=== PATIENT | male | born 1980 | race Caucasian/White ===

== ENCOUNTER 2016-08-17 06:37 | Emergency (ER) | payer OTHER ==
[~2016-08-17 06:37] MED LIST: ALBUTEROL17 GM INH; AZITHROMYCIN250 MG PO; PREDNISONE PO
== END 2016-08-17 08:09 | disposition home or self-care (01) ==
LOC: CED 06:37
DX: K08.89 Other specified disorders of teeth and supporting structures (principal); J45.909 Unspecified asthma, uncomplicated; I25.2 Old myocardial infarction; F17.200 Nicotine dependence, unspecified, uncomplicated; Z88.1 Allergy status to other antibiotic agents
CPT/HCPCS: 99282

== ENCOUNTER 2016-08-19 14:14 | Emergency (ER) | payer OTHER ==
--- NOTE | ~2016-08-19 | CT99 ---
[facility] A Service of [facility] RADIOLOGY TEXT RESULTS PATIENT: MICHAELA RICHARD LOCATION: [facility] : 76 UNIT #: [id number] AGE: [address]: Zack Coe DO SEX: M ORDER DR: [id number] [facility]. [place], [place] [address] [id number] MR#: [id number] Acc #: [id number] NAME: MICHAELA RICHARD : 1980 SEX: M STUDY DATE/TIME: 08/19/2016 16:10 UNIT: [facility] ROOM: STUDY DESCRIPTION: CT Maxillofacial Area W Cont Attending Physician: Zack Coe D.O. Ordering Physician: Zack Coe D.O. Primary Care Physician: No Primary Care Physician MEDICAL IMAGING REPORT This report is preliminary unless electronic signature is present EXAMINATION CT face with contrast. DATE 08/19/2016 HISTORY Right tooth pain, jaw swelling, throat tightness for 1 week. Pain greatest in the right lower jaw. COMPARISON None. PROCEDURE 2 mm axial images through the face after IV contrast administration. Coronal reformatted images were obtained. This CT exam was performed with one or more of the following radiation dose reduction techniques: automatic exposure control, adjustment of mA and/or kV according to patient size, and iterative reconstruction. FINDINGS Multiloculated peripherally enhancing fluid collection or abscess is demonstrated in the right mandibular region, greatest medially. It measures 3.3 x 5.1 x 4.2 cm. There is periapical lucency surrounding the right third molar with a root tip, which may extend just through the cortical margin of the mandible, and there is a large dental juan luis involving this molar. Periodontal disease suspected. Abnormally enlarged right jugulodigastric node is favored to represent benign reactive change measuring up to 1.6 cm. Enlarged right submandibular node measures 1.9 x 1.3 cm. Right submental node measures 1.7 x 0.9 cm. Overlying right facial cellulitic change and skin thickening. There is mild mass effect upon the oropharyngeal airway. [facility] A Service of [facility] RADIOLOGY TEXT RESULTS PATIENT: MICHAELA RICHARD LOCATION: [facility] : 76 UNIT #: [id number] AGE: [address]: Zack Coe DO SEX: M ORDER DR: Epiglottis appears within normal limits. Major vascular structures appear patent. IMPRESSION 1. Large abscess surrounds the right mandible, involving the soft tissues both medial and lateral to the mandible, greatest medially, with the abscess measuring 5.0 x 3.3 x 4.2 cm. Creates mild mass effect upon the oropharynx, but the airway does remain patent. 2. Pathologically enlarged right submental, right submandibular and jugulodigastric nodes likely reactive. 3. Suspected periodontal disease change involving the right third mandibular molar with lucency at its apex, the root tip appearing just to protrude into or through the cortex of the mandible inferiorly. Large dental juan luis is also present in this tooth. Dictated by... Kesha Goodman M.D. THIS IS AN ELECTRONICALLY VERIFIED REPORT Kesha Goodman M.D. at 08/21/2016 8:39 AM Smith TD: 08/19/2016 20:56 JOB #: [id number] MEDICAL IMAGING REPORT Page 1 of 1 COPY
[2016-08-19 14:49] LABS: BASOPHIL# 0.1 X10e3 (0-0.3); BASOPHIL% 0.5 % (0-2.5); EOSINOPHIL# 0.1 X10e3 (0-0.7); EOSINOPHIL% 0.9 % (0.0-7.0); HEMATOCRIT 43.1 % (38.0-50.0); HEMOGLOBIN 14.6 gm/dL (13.0-16.0); LYMPHOCYTE# 1.5 X10e3 (1.0-3.5); LYMPHOCYTE% 11.1 % (17.0-45.0); MEAN CELL VOLUME 98.8 FL (83-96); MEAN CORPUSCULAR HEMOGLOBIN 33.5 PG (28-34); MEAN CORPUSCULAR HGB CONC 33.9 g/dL (30-36); MEAN PLATELET VOLUME 8.6 FL (6.5-11.5); MONOCYTE# 1.6 X10e3 (0-1.0); MONOCYTE% 12.2 % (3.0-12.0); NEUTROPHIL# 10.1 X10e3 (1.5-7.1); NEUTROPHIL% 75.3 % (40-75); PLATELET COUNT 273 X10e3 (140-420); RED BLOOD COUNT 4.36 X10e (3.90-5.60); RED CELL DISTRIBUTION WIDTH 12.8 % (11.0-15.5); WHITE BLOOD COUNT 13.4 X10e3 (4.0-10.5)
[2016-08-19 14:52] LABS: DIFF IND NO
[2016-08-19 15:12] LABS: INR 1.1; PROTHROMBIN TIME (PATIENT) 11.1 SECONDS (9.6-11.5)
[2016-08-19 15:16] LABS: BUN/CREATININE RATIO 12.72; CALCIUM SERUM 9.3 mg/dL (8.4-10.2); CREATININE SERUM 1.1 mg/dL (0.6-1.4); GLOM FILT RATE Estimated 85.3 mL/min (>60); POTASSIUM 3.7 mmol/L (3.5-5.1)
== END 2016-08-19 19:35 | disposition hospice, home (50) ==
LOC: CED 14:14
PROVIDERS: Emergency Medicine
DX: K12.2 Cellulitis and abscess of mouth (principal); Z88.1 Allergy status to other antibiotic agents
CPT/HCPCS: 36415; 70487; 80048; 85025; 85610; 85730; 96365; 96375; 99285; J1170; J2270; J2405; J3370; Q9967

== ENCOUNTER 2016-09-05 15:47 | Emergency (ER) | payer OTHER | END 2016-09-05 18:20 | disposition home or self-care (01) | LOC: CED 15:47 → CFTX 15:47 | DX: R22.0 Localized swelling, mass and lump, head (principal); J45.909 Unspecified asthma, uncomplicated; F17.210 Nicotine dependence, cigarettes, uncomplicated; Z88.0 Allergy status to penicillin | CPT/HCPCS: 99283 ==